=== PATIENT | male | born 1985 | race Caucasian/White ===

== ENCOUNTER 2019-07-27 03:37 | Emergency (ER) | payer MEDICAID, OTHER ==
[~2019-07-27] VITALS: Ht 175.3 cm; Wt 70.5 kg
[2019-07-27 03:50] VITALS: BP 156/98
[2019-07-27] MEDS ORDERED: sulfamethoxazole/trimethoprim DS (800/160mg) tablet PO ONE (04:05)
[2019-07-27] MEDS ORDERED: SULF1TAB49 PO (04:06)
== END 2019-07-27 04:24 | disposition home or self-care (01) ==
LOC: ER 03:38
DX: L02.01 Cutaneous abscess of face (principal); L03.211 Cellulitis of face; F41.9 Anxiety disorder, unspecified; F32.9 Major depressive disorder, single episode, unspecified; F12.90 Cannabis use, unspecified, uncomplicated; Z88.0 Allergy status to penicillin; Z79.899 Other long term (current) drug therapy
CPT/HCPCS: 99283

== ENCOUNTER 2024-03-03 02:50 | Emergency (ER) | payer MEDICAID ==
[~2024-03-03] VITALS: Ht 175.3 cm; Wt 80.9 kg
[2024-03-03] MEDS ORDERED: mupirocin 2% cream 15gm TP ONE (03:30)
[2024-03-03] MEDS ORDERED: MUPI22OI30 TOP (03:31)
[2024-03-03] MEDS ORDERED: VALA500T41 PO (03:31)
[2024-03-03] MEDS: mupirocin 2% ointment 22GM TP ONE (03:38)
[2024-03-03 03:43] VITALS: BP 144/90; PULSE 100; RESP 18; TEMP 97.8; O2SAT 98
== END 2024-03-03 03:45 | disposition home or self-care (01) ==
LOC: ER 02:50
DX: K13.0 Diseases of lips (principal); R42 Dizziness and giddiness; F41.9 Anxiety disorder, unspecified; F32.A Depression, unspecified; F12.90 Cannabis use, unspecified, uncomplicated; Z88.1 Allergy status to other antibiotic agents; Z88.0 Allergy status to penicillin; Z79.899 Other long term (current) drug therapy; Z79.2 Long term (current) use of antibiotics
CPT/HCPCS: 99283

== ENCOUNTER 2024-10-22 23:25 | Emergency (ER) | payer MEDICAID ==
[~2024-10-22] VITALS: Ht 175.3 cm; Wt 84.0 kg
[~2024-10-22 23:25] MED LIST: VALA500T41 PO
[2024-10-22 23:28] VITALS: BP 152/99; PULSE 125; RESP 16; TEMP 98.1; O2SAT 100
[2024-10-22 23:53] LABS: BASOPHILS % (AUTO) 0.5 % (0-1); EOSINOPHILS # (AUTO) 0.1 X10'3 (0-0.9); EOSINOPHILS % (AUTO) 0.9 % (0-6); HEMATOCRIT 45.7 % (42.0-52.0); HEMOGLOBIN 15.8 g/dl (14.0-17.9); LYMPHOCYTES # (AUTO) 2.4 X10'3 (1.1-4.8); MEAN CORPUSCULAR HEMOGLOBIN 29.1 PG (27.0-31.0); MEAN CORPUSCULAR HGB CONC 34.6 g/dL (33.0-36.5); MEAN CORPUSCULAR VOLUME 84.3 FL (78-98); MEAN PLATELET VOLUME 9.2 FL (7.4-10.4); MONOCYTES # (AUTO) 0.7 X10'3 (0-0.9); NEUTROPHILS # (AUTO) 6.5 X10'3 (1.8-7.7); NEUTROPHILS % (AUTO) 66.6 % (42-75); PLATELET COUNT 213 X10'3 (140-440); RED BLOOD COUNT 5.43 X10'6 (4.70-6.10); RED CELL DISTRIBUTION WIDTH 13.8 % (11.5-14.5); WHITE BLOOD COUNT 9.7 X10'3 (4.5-11.0)
[2024-10-23 00:27] LABS: HIV ANTIBODY 1&2 RAPID NON-REACTIVE (Neg)
[2024-10-23] MEDS: LIDOcaine 1% W/epiNEPHrine 1:100,000 20ml vial SQ ONE (01:10)
[2024-10-23] MEDS ORDERED: SULF1TAB49 PO (02:56)
[2024-10-23] MEDS: sulfamethoxazole/trimethoprim DS (800/160mg) tablet PO ONE (03:05)
== END 2024-10-23 03:14 | disposition home or self-care (01) ==
LOC: ER 23:26
DX: L02.01 Cutaneous abscess of face (principal); F12.90 Cannabis use, unspecified, uncomplicated; F41.9 Anxiety disorder, unspecified; F32.A Depression, unspecified; Z88.0 Allergy status to penicillin; Z88.1 Allergy status to other antibiotic agents; Z79.899 Other long term (current) drug therapy
CPT/HCPCS: 10060; 36415; 85025; 86703; 99283; A6449